=== PATIENT | male | born 1975 | race Hispanic/Latino ===

== ENCOUNTER 2018-07-10 14:57 | Emergency (ER) | payer MEDICAID ==
[~2018-07-10] VITALS: Ht 167.6 cm; Wt 65.8 kg
[~2018-07-10 14:57] MED LIST: DILANTIN; DILANTIN100 MG ORAL; DILANTIN100 MG PO; LIBRIUM25 MG ORAL; NKM; PHENOBARBITAL100 MG PO; PHENOBARBITAL30 MG PO; VICODIN 5-5001 EACH PO; [UNRECOGNIZED DRUG - REMARK]
[2018-07-10 15:08] VITALS: BP 135/95
--- NOTE | 2018-07-10 15:13 | Emergency Room Report ---
History of Present Illness General Chief Complaint: Seizure Source: EMS Present Illness HPI This is a 43-year-old male with a history of long-standing alcoholism and alcoholic seizures, complains of being a seizure prior to arrival. Witnessed by the grandmother. He states he had a drink this morning. He had it accordingly drank + as well. He states he has cut down. He states that he used to be on Dilantin but stopped taking several months ago for on specified reason. He denies any symptoms currently. No exacerbating or relieving factor. Denies any nausea or vomiting. He denies any change in vision. Allergies: Coded Allergies: Pork (Verified Allergy, Severe, syncope, 07/10/12) Patient History Past Medical History: seizures Pertinent Family History: none Social History: Reports: alcohol use Nursing Documentation-[facility] Past Medical History: No History, Except For Hx Hypertension: Yes Hx Neurological Problems: Yes - seizures Hx Seizures: Yes Review of Systems All Other Systems: negative except mentioned in HPI Physical Exam Vital Signs Date Time Temp Pulse Resp B/P (MAP) Pulse Ox O2 Delivery O2 Flow Rate FiO2 07/10/18 15:01 98.4 106 14 136/82 (100) 98 Room Air General Appearance: well appearing, no apparent distress Head: normocephalic, atraumatic ENT: hearing grossly normal, normal voice Neck: full range of motion, supple Respiratory: no respiratory distress, speaking full sentences Gastrointestinal: normal bowel sounds, non tender, soft Musculoskeletal: normal inspection, digits/nails normal, no calf tenderness Neurologic: alert, normal gait Psychiatric: normal inspection, mood/affect normal Skin: no rash Medical Decision Making Diagnostic Impression: Primary Impression: Seizure disorder ER Course This is a potentially very serious patient requiring multiple bedside evaluations. Particularly very concerned about acute head injury. He is neurologically intact. I also did consider DTs. The patient initially had tachycardia and he was given IV fluids for volume resuscitation. His tachycardia has improved. The patient has been noncompliant with his Dilantin for several months and therefore, we loaded him with Dilantin here. He has had no adverse event. The patient will be discharged home on Dilantin. He is to follow-up with his primary care physician as an outpatient. I'm also advise him to quit alcohol. Neurological examination is essentially unremarkable. Laboratory Tests Test 07/10/18 15:27 White Blood Count 6.9 K/UL (4.8-10.8) Red Blood Count 4.16 M/UL (4.70-6.10) L Hemoglobin 13.9 G/DL (14.2-18.0) L Hematocrit 38.4 % (42.0-52.0) L Mean Corpuscular Volume 92 FL (80-99) Mean Corpuscular Hemoglobin 33.3 PG (27.0-31.0) H Mean Corpuscular Hemoglobin Concent 36.1 G/DL (32.0-36.0) H Red Cell Distribution Width 12.5 % (11.6-14.8) Platelet Count 66 K/UL (150-450) L Mean Platelet Volume 7.4 FL (6.5-10.1) Neutrophils (%) (Auto) % (45.0-75.0) Lymphocytes (%) (Auto) % (20.0-45.0) Monocytes (%) (Auto) % (1.0-10.0) Eosinophils (%) (Auto) % (0.0-3.0) Basophils (%) (Auto) % (0.0-2.0) Sodium Level 132 MMOL/L (136-145) L Potassium Level 3.2 MMOL/L (3.5-5.1) L Chloride Level 92 MMOL/L (98-107) L Carbon Dioxide Level 22 MMOL/L (21-32) Anion Gap 19 mmol/L (5-15) H Blood Urea Nitrogen 9 mg/dL (7-18) Creatinine 0.8 MG/DL (0.55-1.30) Estimate Glomerular Filtration Rate > 60 mL/min (>60) Glucose Level 134 MG/DL (74-106) H Calcium Level 9.5 MG/DL (8.5-10.1) Total Bilirubin 1.1 MG/DL (0.2-1.0) H Direct Bilirubin 0.2 MG/DL (0.0-0.3) Aspartate Amino Transferase (AST) 140 U/L (15-37) H Alanine Aminotransferase (ALT) 53 U/L (12-78) Alkaline Phosphatase 70 U/L (46-116) Total Protein 8.7 G/DL (6.4-8.2) H Albumin 4.7 G/DL (3.4-5.0) Globulin 4.0 g/dL Albumin/Globulin Ratio 1.2 (1.0-2.7) Last Vital Signs Date Time Temp Pulse Resp B/P (MAP) Pulse Ox O2 Delivery O2 Flow Rate FiO2 07/10/18 15:01 98.4 106 14 136/82 (100) 98 Room Air Disposition: HOME, SELF-CARE Condition: Stable Scripts Phenytoin Sodium Extended* (DILANTIN*) 100 Mg Capsule 100 MG ORAL THREE TIMES A DAY, #90 CAP 0 Refills Prov: TREVON MCCORMICK 07/10/18 Patient Instructions: Seizure, Adult TREVON MCCORMICK July 10, 2018 15:13
[2018-07-10] MEDS ORDERED: Phenytoin 1,000 MG in NS 275 ML IVPB ONE (15:45)
[2018-07-10 16:05] LABS: HEMATOCRIT 38.4 % (42.0-52.0); HEMOGLOBIN 13.9 G/DL (14.2-18.0); MEAN CORPUSCULAR VOLUME 92 FL (80-99); PLATELET COUNT 66 K/UL (150-450); RED BLOOD COUNT 4.16 M/UL (4.70-6.10); RED CELL DISTRIBUTION WIDTH 12.5 % (11.6-14.8); WHITE BLOOD COUNT 6.9 K/UL (4.8-10.8)
[2018-07-10 16:12] LABS: ANION GAP 19 mmol/L (5-15); BLOOD UREA NITROGEN 9 mg/dL (7-18); CALCIUM 9.5 MG/DL (8.5-10.1); CARBON DIOXIDE 22 MMOL/L (21-32); CHLORIDE 92 MMOL/L (98-107); CREATININE 0.8 MG/DL (0.55-1.30); POTASSIUM 3.2 MMOL/L (3.5-5.1); SODIUM 132 MMOL/L (136-145)
[2018-07-10 16:22] LABS: ALANINE AMINOTRANSFERASE 53 U/L (12-78); ALBUMIN 4.7 G/DL (3.4-5.0); ALBUMIN/GLOBULIN RATIO 1.2 (1.0-2.7); ALKALINE PHOSPHATASE 70 U/L (46-116); ASPARTATE AMINO TRANSFERASE 140 U/L (15-37); BILIRUBIN,TOTAL 1.1 MG/DL (0.2-1.0)
[2018-07-10 16:23] LABS: BILIRUBIN,DIRECT 0.2 MG/DL (0.0-0.3)
[2018-07-10 18:15] VITALS: BP 125/78
[2018-07-10] MEDS ORDERED: DILANTIN100 MG ORAL (18:19)
[2018-07-10 19:00] VITALS: BP 122/76
== END 2018-07-10 19:01 | disposition home or self-care (01) ==
LOC: EDBD 14:57 → EMR 17:04
DX: G40.909 Epilepsy, unspecified, not intractable, without status epilepticus (principal); G40.509 Epileptic seizures related to external causes, not intractable, without status epilepticus; F10.20 Alcohol dependence, uncomplicated; I10 Essential (primary) hypertension
CPT/HCPCS: 36415; 80053; 82248; 85025; 96365; 99284; J1165; J7050